=== PATIENT | female | born 1965 | race Caucasian/White ===

== ENCOUNTER 2019-01-29 15:16 | Outpatient (REF) | payer OTHER, SELFPAY ==
[2019-01-30 14:21] LABS: Chlamydia Result Negative (Negative); GC Result Negative (Negative)
== END 2019-01-29 15:36 ==
LOC: LBN 15:16
PROVIDERS: Visit Provider Nurse Practitioner Family
DX: Z11.3 Encounter for screening for infections with a predominantly sexual mode of transmission (principal)
CPT/HCPCS: 87491; 87591

== ENCOUNTER 2019-01-30 02:18 | Outpatient (CLI) | payer OTHER, SELFPAY ==
--- NOTE | 2019-01-30 08:09 | DI.US_ITS ---
EXAM: US PELVIS TRANSVAGINAL CLINICAL HISTORY: RLQ pain, R10.31 TECHNIQUE: Ultrasound performed using standard protocol. COMPARISON: No exams were available for comparison FINDINGS: Pelvic ultrasound was performed transabdominally and transvaginally. Please see the accompanying araceli a sheet for measurements of pelvic structures. Uterus is unremarkable in appearance. Endometrial st ripe is about 7 millimeters in thickness and appears homogeneous, please correlate with menopausal st atus. Left ovary contains 38 millimeter in diameter simple cyst. Right ovary contains a 12 millimeter in d iameter simple cyst or follicle. Otherwise ovaries are unremarkable in appearance. No free fluid id entified in the cul-de-sac. Limited scanning of the kidneys is unremarkable. IMPRESSION: Endometrial stripe homogeneous but 7 millimeters in thickness, please correlate regarding menopausal status. 38 millimeter in diameter simple cyst left ovary.
[2019-01-30 10:05] LABS: TSH (W/Ref FT4) 1.84 uIU/mL (0.36-3.74)
== END 2019-01-30 02:38 ==
PROVIDERS: Visit Provider Nurse Practitioner Family
DX: R10.31 Right lower quadrant pain (principal); N92.6 Irregular menstruation, unspecified; N83.292 Other ovarian cyst, left side; N83.291 Other ovarian cyst, right side
CPT/HCPCS: 36415; 76830; 76856; 84443

== ENCOUNTER 2019-02-02 12:47 | Outpatient (REF) | payer OTHER, SELFPAY ==
--- NOTE | 2019-02-02 11:30 | PAPFT_PTH ---
PATIENT: Lorena Gonzalez LOC: [facility] U#:[id number] AGE/SX: 53/F ROOM: RE02/02/[address]: RACHEAL Bruno : 1965 BED: DIS: 02/02/2019 SPEC #: [id number] RECD: 02/02/19 18:18 STATUS: SRAVANTHI REQ #: [id number] BRADEN: 02/02/19 11:[address]: Reshma Brothers DEPT: [facility] Cytology RECD BY: Cinthia Miranda ENTERED: 02/02/19 18:18 SP TYPE: PAPFT YOVANY DR: Rochelle Hernandez Tissues: 1 - CX/ENDOCX FOR PAP SMEARS Procedures: PAP THIN PREP/UVM Screening HPV DNA PROBE Comments: [id number]
== END 2019-02-02 13:07 ==
LOC: LBN 12:47
PROVIDERS: Visit Provider Nurse Practitioner Family
DX: Z12.4 Encounter for screening for malignant neoplasm of cervix (principal); Z11.51 Encounter for screening for human papillomavirus (HPV)
CPT/HCPCS: 88142; 87624

== ENCOUNTER 2019-03-05 07:48 | Outpatient (CLI) | payer OTHER, SELFPAY ==
[2019-03-05 08:13] LABS: Abs Immature Grans 0.01 k/cumm (0.0-0.09); Absolute Basophil Count 0.03 k/cumm (0.0-0.2); Absolute Eosinophil Count 0.35 k/cumm (0.0-0.7); Absolute Lymphocyte Count 1.81 k/cumm (1.2-3.4); Absolute Monocyte Count 0.63 k/cumm (0.11-0.7); Absolute Neutrophil Count 3.23 k/cumm (1.2-6.7); Basophils % 0.5; Eosinophils % 5.8; HCT 41.8 % (36.0-46.0); HGB 13.7 g/dL (12.0-15.5); Immature Grans % 0.2 %; Lymphocytes % 29.9; Mean Corp. HGB Concentration 32.8 g/dL (32.0-36.0); Mean Corpuscular Hemoglobin 33.4 pg (27.0-33.0); Mean Platelet Volume 9.6 fL (8.0-11.0); Monocytes % 10.4; Neutrophils % 53.2; Platelet Count 335 x1000/uL (130-400); RBC Distribution Width 12.1 % (11.7-14.6); White Blood Cell Count 6.06 k/cumm (4.4-10.8)
--- NOTE | 2019-03-05 08:17 | DI.MAMMO_ITS ---
EXAM: MG MAMMO SCREENING CLINICAL HISTORY: SCREENING, Z12.31. TECHNIQUE: Bilateral full field digital CC and MLO mammographic images were obtained with 3D tomosyn thesis and utilizing computer aided detection (CAD). COMPARISON: Available for comparison. FINDINGS: Masses/Architectural Distortion: None seen. Microcalcifications: No suspicious pleomorphic-type are seen. Skin Thickening/Nipple Retraction: None. IMPRESSION: 1. No significant interval change with no specific features of malignancy noted. 2. Unless there is more urgent need, screening mammography is recommended, as per [employer] guidelines. ACR BI-RAD Category- 1 Negative Breast Density - Category B - Scattered areas of fibroglandular density A negative radiographic report should not delay biopsy if a dominant or clinically suspicious mass is present. Up to ten percent of cancers are not identified on mammography. A negative report may reinforce clinical impression. Adenosis and dense breasts may obscure an underlying neoplasm. False positive reports average 6 to 10%. Patient will receive a letter notifying them of these results.
[2019-03-05 09:50] LABS: Anion Gap 12.5 mmol/L (3-11); BUN 14 mg/dL (7-18); CO2 23.5 mmol/L (21.0-32.0); CREATININE 0.83 mg/dL (0.55-1.02); Calcium 8.5 mg/dL (8.5-10.1); Calculated LDL 178 mg/dL; Chloride 107 mmol/L (98-107); Cholesterol 285 mg/dL (<200); Glucose 79 mg/dL (74-106); HDL Cholesterol 93 mg/dL (40-60); Potassium 4.4 mmol/L (3.5-5.1); Sodium 143 mmol/L (136-145); Triglyceride 72 mg/dL (<150)
== END 2019-03-05 08:08 ==
PROVIDERS: PCP Registered Nurse; Visit Provider Registered Nurse
DX: Z12.31 Encounter for screening mammogram for malignant neoplasm of breast (principal); I10 Essential (primary) hypertension; E78.5 Hyperlipidemia, unspecified
CPT/HCPCS: 36415; 77063; 77067; 80048; 80061; 85025

== ENCOUNTER 2019-03-09 19:48 | Emergency (ER) | payer OTHER, SELFPAY ==
[2019-03-09 19:54] VITALS: BP 131/83; PULSE 94; RESP 16; TEMP 37; O2SAT 100
--- NOTE | 2019-03-09 20:01 | ED.GENADUL_ITS ---
Discharge Plan Disposition Patient Disposition: HOME Condition: Good Discharge Details Chief Complaint: Orthopedic Clinical Impression: Left ankle sprain Primary Care Provider: Savana Mercado ED Provider: Alon Bernard Home Meds and New Rx's Prescriptions: No Action valacyclovir 500 mg tablet 1,000 mg PO DAILY RF: 0 lysine 1,000 mg tablet 1,000 mg PO DAILY RF: 0 Discharge Instructions Instructions: Ankle Sprain (ED) Additional Instructions: At this time there is no evidence of fracture on your x-rays. Please take Tylenol and Motrin and use ice to help with the swelling and pain. Please use a walking boot and crutches to keep any weight or stress off the foot. I would recommend being nonweightbearing to your left ankle for the next 3 to 4 days, after this gradually transition to using the walking boot. If you have no improvement of your symptoms over the next 2 to 3 weeks you may require repeat imaging. If you notice any worsening of your symptoms, or any new symptoms such as vomiting, diarrhea, fever, chills, shortness of breath, chest pain, numbness, weakness, or fainting , please return immediately to the emergency department for reevaluation. Please follow up with your primary care provider as soon as possible for reassessment and reevaluation. As always, it was a pleasure participating in your medical care today. Referrals: Savana Mercado [Primary Care Provider] - Medical Decision Making This is a 53-year-old female who presents for pain in the left lateral ankle. It roughly 20 to 30 minutes prior to arrival patient stepped into a pothole and inverted her left ankle. She has notable swelling over the left lateral malleolus. No evidence of gross deformity. Pain does limit ambulation. Strength and sensation appear to be intact otherwise. Will get x-ray of the left ankle the left knee secondary to pain with valgus stressing. Will give Tylenol here as she has just taken Motrin here in the ED from her pocketbook. 8:46 PM X-ray results have returned, no evidence of acute process or fracture. We will give the patient crutches, walking boot, recommend Tylenol Motrin and ice. Discussed red flags which to return. I have extensively reviewed the treatment plan and discharge instructions with the patient and their family. I have addressed all patient concerns at this time. The patient and family was made aware of what symptoms to monitor for that would warrant a return to the emergency department. Discussed the plan with the patient and family, they demonstrate verbal understanding and agreement with our assessment and plan at this time. FINDINGS: Bones/joints: There is no evidence of acute fracture.There is no evidence of malalignment or dislocation. Soft tissues: Normal. IMPRESSION: There is no evidence of acute fracture.There is no evidence of malalignment or dislocation. Thank you for allowing us to participate in the care of your patient. Dictated and Authenticated by: Rach Gomez MD 03/09/2019 8:28 PM Eastern Time ([place] & [place]) FINDINGS: Bones/joints: There is no evidence of acute fracture.There is no evidence of malalignment or dislocation. Soft tissues: Lateral malleolar soft tissue swelling. IMPRESSION: 1. Lateral malleolar soft tissue swelling. 2. There is no evidence of acute fracture.There is no evidence of malalignment or dislocation. Thank you for allowing us to participate in the care of your patient. Dictated and Authenticated by: Rach Gomez MD 03/09/2019 8:29 PM Eastern Time ([place] & [place]) HPI General Date/Time Provider Initiated Documentation: 03/09/19 19:49 . HPI Narrative: This is a 53-year-old female who presents today for left ankle pain. Roughly 20-30 minutes prior to arrival the patient was walking stepped in a pothole and inverted her left ankle. Because of the mild twisting of the knee. Pain is in the lateral ankle. She denies numbness or tingling. Pain is made worse with movement or ambulation. Patient denies any other complaints at this time. She has not taken any NSAIDs. Related Data Home Medications Medication Instructions Recorded Confirmed lysine 1,000 mg tablet 1,000 mg PO DAILY 01/29/19 03/09/19 valacyclovir 500 mg tablet 1,000 mg PO DAILY tab 01/29/19 03/09/19 Allergies Allergy/AdvReac Type Severity Reaction Status Date / Time erythromycin base AdvReac Intermediate Verified 03/09/19 19:57 [From Erythrocin] General Stated Complaint: Orthopedic DION: 4 Review of Systems All systems reviewed & are unremarkable except as noted in HPI and below [facility]LY [facility] Medical History (Updated 03/09/19 @ 19:59 by Sydni Savage) Migraine (Chronic) Trigeminal neuralgia (Acute) Social History Smoking/Tobacco Use Status: Never Alcohol Intake: never Drug use: Never Substance use type: does not use Details: 1-2 drinks five days a week Additional Social history: pt is here with family; interacts appropriately Female Reproductive History Menstrual control method: none History History 3 Para 3 Hx # Term Pregnancies Multiple births Hx # Pregnancies Ectopic pregnancies AB induced Hx Number of Living Children AB spontaneous Exam Narrative Exam Narrative: 1.Const: Well-nourished, Well-developed, appearing stated age 2.Eyes: PERRL, no conjunctival injection, and symmetrical lids. 3.ENT: Atraumatic external nose and ears. Moist MM. Neck: Symmetric, trachea midline, No thyromegaly. 4.CVS: +S1/S2, No murmurs or gallops. Peripheral pulses 2+ and equal in all extremities. Brisk capillary refill in all extremities. 5.RESP: Unlabored respiratory effort. Clear to auscultation bilaterally. No wheezes rales or rhonchi 6.GI: Soft, Nontender/Nondistended, No hepatosplenomegaly. No guarding or rebound. 7.MSK: Normocephalic, Extremities w/o deformity however there is notable swelling over the lateral malleolus of the left ankle no cyanosis or clubbing, Left knee: The knee is stable to varus, valgus, and anterior drawer stress. However the patient does have mild pain with valgus stressing of the left knee. No deformity. Patellar grind test is negative. Dwight test is negative for pain. No edema or warmth to the joint. No ttp to the patella, tibial plateau, or fibular head. Left ankle: Patient demonstrates normal strength for plantarflexion, dorsiflexion, and medial and lateral movement. Strength is somewhat limited for lateral movement secondary to pain. Notable swelling over the lateral malleolus with appropriate tenderness over this area. No evidence of gross deformity though. No significant tenderness over the arch of the foot, or toes. She is able to flex and extend her toes well without difficulty. Brisk capillary refill is present, dorsalis pedis and posterior tibial pulse +2 bilaterally. Normal sensation throughout. No deformity for the tib or fib. No significant tenderness on palpation of the tibia or fibula except for the distal aspect of the lateral malleolus. 8.Skin: Warm, Dry. No rashes or lesions. 9.Neuro: rolling machine tender II-XII grossly intact. Sensation grossly intact, no focal neurologic deficits. 10.Psych: (AAO) x3. Appropriate mood and affect Course Vital Signs Vital signs: Vital Signs Temperature 37.0 C 03/09/19 19:54 Pulse 94 H 03/09/19 19:54 Respiratory Rate 16 03/09/19 19:54 Blood Pressure 131/83 03/09/19 19:54 Pulse Oximetry 100 03/09/19 19:54 Temperature 37.0 C 03/09/19 19:54 Temperature Source Skin 03/09/19 19:54 Pulse 94 H 03/09/19 19:54 Respiratory Rate 16 03/09/19 19:54 Blood Pressure 131/83 03/09/19 19:54 Pulse Oximetry 100 03/09/19 19:54 Pain Level 9 03/09/19 19:54
[2019-03-09] MEDS: Acetaminophen 500 MG TAB 1000 MG PO (20:05)
--- NOTE | 2019-03-09 20:11 | DI.RAD_ITS ---
EXAM: XR KNEE LT 3V AP,LAT,BERTO INDICATION: fall, medial knee pain. COMPARISON: No exams were available for comparison TECHNIQUE: 2D digital imaging was performed. FINDINGS: No fracture or joint effusion is seen. There are minimal degenerative changes. IMPRESSION: No acute abnormality.
--- NOTE | 2019-03-09 20:15 | DI.RAD_ITS ---
EXAM: XR ANKLE LT COMPLETE INDICATION: fall, lateral ankle pain. COMPARISON: No exams were available for comparison TECHNIQUE: 2D digital imaging was performed. FINDINGS: There is soft tissue swelling around the lateral malleolus. No fracture or ankle mortise widening. No talar dome defect is seen. IMPRESSION: Soft tissue swelling.
--- NOTE | 2019-03-09 20:28 | DI.VRAD_ITS ---
PROCEDURE INFORMATION: Exam: XR Left Knee Exam date and time: 03/09/2019 7:57 PM Age: 53 years old Clinical indication: Pain; Knee; Left; Patient HX: Fall TECHNIQUE: Imaging protocol: XR Left knee. Views: 3 views. COMPARISON: No relevant prior studies available. FINDINGS: Bones/joints: There is no evidence of acute fracture.There is no evidence of malalignment or dislocation. Soft tissues: Normal. IMPRESSION: There is no evidence of acute fracture.There is no evidence of malalignment or dislocation. Dictated and Authenticated by: Rach Gomez MD. Ordering:ELLY Chi MD
--- NOTE | 2019-03-09 20:29 | DI.VRAD_ITS ---
PROCEDURE INFORMATION: Exam: XR Left Ankle Exam date and time: 03/09/2019 8:24 PM Age: 53 years old Clinical indication: Pain; Ankle; Left; Patient HX: Fall TECHNIQUE: Imaging protocol: XR Left ankle. Views: 3 or more views. COMPARISON: No relevant prior studies available. FINDINGS: Bones/joints: There is no evidence of acute fracture.There is no evidence of malalignment or dislocation. Soft tissues: Lateral malleolar soft tissue swelling. IMPRESSION: 1. Lateral malleolar soft tissue swelling. 2. There is no evidence of acute fracture.There is no evidence of malalignment or dislocation. Dictated and Authenticated by: Rach Gomez MD. Ordering:ELLY Chi MD
== END 2019-03-09 21:05 | disposition home or self-care (01) ==
PROVIDERS: Emergency Provider Student in an Organized Health Care Education/Training Program; PCP Registered Nurse
DX: S93.402A Sprain of unspecified ligament of left ankle, initial encounter (principal); M25.562 Pain in left knee; W17.2XXA Fall into hole, initial encounter; X50.9XXA Other and unspecified overexertion or strenuous movements or postures, initial encounter
CPT/HCPCS: 29515; 73562; 99285; 73610; 99284; E0114; L4361

== ENCOUNTER 2019-04-07 09:58 | Outpatient (CLI) | payer OTHER, SELFPAY ==
--- NOTE | 2019-04-07 09:45 | DI.RAD_ITS ---
EXAM: XR ANKLE LT COMPLETE CLINICAL HISTORY: f/u TECHNIQUE: COMPARISON: XR ANKLE LT COMPLETE from 03/09/2019 FINDINGS: Three views were obtained. The ankle mortise is well maintained. No bony or soft tissue abnormality seen. IMPRESSION:
== END 2019-04-07 10:18 ==
PROVIDERS: PCP Registered Nurse; Visit Provider Orthopaedic Surgery
DX: S93.402D Sprain of unspecified ligament of left ankle, subsequent encounter (principal)
CPT/HCPCS: 73610

== ENCOUNTER 2019-06-01 11:05 | Observation (INO) | payer OTHER, SELFPAY ==
[2019-06-01] VITALS (90 sets, daily range): BP systolic 113–143; BP diastolic 68–91; PULSE 56–92; RESP 12–28; TEMP 36.5–37.3; O2SAT 94–100
[2019-06-01 12:03] LABS: Absolute Basophil Count 0.03 k/cumm (0.0-0.2); Absolute Eosinophil Count 0.13 k/cumm (0.0-0.7); Absolute Lymphocyte Count 1.24 k/cumm (1.2-3.4); Absolute Monocyte Count 0.39 k/cumm (0.11-0.7); Absolute Neutrophil Count 3.23 k/cumm (1.2-6.7); Basophils % 0.6; Eosinophils % 2.6; Lymphocytes % 24.7; Mean Corp. HGB Concentration 33.3 g/dL (32.0-36.0); Mean Corpuscular Hemoglobin 32.8 pg (27.0-33.0); Mean Corpuscular Volume 98.5 fL (80-95); Mean Platelet Volume 9.9 fL (8.0-11.0); Monocytes % 7.8; Neutrophils % 64.3; Platelet Count 337 x1000/uL (130-400); RBC 3.96 m/cumm (4.00-5.20); RBC Distribution Width 12.6 % (11.7-14.6); White Blood Cell Count 5.02 k/cumm (4.4-10.8)
--- NOTE | 2019-06-01 12:15 | DI.RAD_ITS ---
EXAM: XR PORTABLE CHEST AP CLINICAL HISTORY: chest pain TECHNIQUE: 2D digital imaging was performed. COMPARISON: No exams were available for comparison FINDINGS: LUNGS: Clear. No pleural abnormality seen. HEART: Normal. MEDIASTINUM: Normal. OTHER FINDINGS: None. OTHER FINDINGS: EKG leads overlie the chest. IMPRESSION: No acute pulmonary findings. DATA REPOSITORY: RADIATION DOSE DELIVERED:
[2019-06-01 12:23] LABS: ALT 24 U/L (14-59); AST 35 U/L (15-37); Albumin 3.7 g/dL (3.4-5.0); Alkaline Phosphatase 55 U/L (46-116); Anion Gap 8.5 mmol/L (3-11); BUN 13 mg/dL (7-18); Bilirubin, Total 0.5 mg/dL (0.2-1.0); CO2 24.5 mmol/L (21.0-32.0); CREATININE 0.76 mg/dL (0.55-1.02); Chloride 107 mmol/L (98-107); Glucose 89 mg/dL (74-106); Magnesium 2.1 mg/dL (1.8-2.4); Sodium 140 mmol/L (136-145); Total Protein 7.1 g/dL (6.4-8.2)
[2019-06-01 12:24] LABS: Troponin I < 0.05 ng/Ml (<0.06)
[2019-06-01] MEDS: Aspirin 81 MG CHEW 324 MG CH (12:25)
--- NOTE | 2019-06-01 12:25 | ED.GENADUL_ITS ---
Discharge Plan Discharge Details Chief Complaint: Chest Pain Primary Care Provider: Savana Mercado ED Provider: Valerie Royal Home Meds and New Rx's Prescriptions: No Action valacyclovir 500 mg tablet 1,000 mg PO DAILY RF: 0 lysine 1,000 mg tablet 1,000 mg PO DAILY RF: 0 ibuprofen 800 mg tablet 800 mg PO Q8H RF: 0 Medical Decision Making Lorena Gonzalez is a 53-year-old woman with a history of hypertension, migraine headaches, depression who presented to the emergency department with exertional chest pain that began 3 days ago, in the setting of new intermittent chest pressure since mid April and respiratory infection 1 to 2 weeks ago now improving. On exam patient is well and nontoxic-appearing. Benign cardiopulmonary exam. Concern for ACS versus musculoskeletal pain versus other. Low risk for pulmonary embolism. Exam/history is not consistent with acute aortic process, sepsis. Plan for EKG, chest x-ray, screening labs, 324 mg aspirin, telemetry, IV. Will monitor and reassess. Initial troponin negative, will repeat. Patient reports she has no chest pain on reassessment. Repeat troponin negative, patient remains pain-free. Patient does not low risk for discharge at this time. Concern for unstable angina. Plan for admission, patient presentation and results discussed with Dr. Nation. Clinical impression: Chest pain Disposition: [facility] inpatient Medical Records Medical records reviewed: Yes I reviewed the patient's medical records. Imaging Data Radiologic Study: Attestation: I personally reviewed and interpreted this imaging study as follows: Radiologist's impression: EXAM: XR PORTABLE CHEST AP CLINICAL HISTORY: chest pain TECHNIQUE: 2D digital imaging was performed. COMPARISON: No exams were available for comparison FINDINGS: LUNGS: Clear. No pleural abnormality seen. HEART: Normal. MEDIASTINUM: Normal. OTHER FINDINGS: None. OTHER FINDINGS: EKG leads overlie the chest. IMPRESSION: No acute pulmonary findings. Lab Data Lab results reviewed: Yes I reviewed the patient's lab results. Labs: Laboratory Tests Range/Units 06/01/19 06/01/19 06/01/19 11:50 11:50 11:50 WBC (4.4-10.8) k/cumm 5.02 RBC (4.00-5.20) m/cumm 3.96 L Hgb (12.0-15.5) g/dL 13.0 Hct (36.0-46.0) % 39.0 MCV (80-95) fL 98.5 H MCH (27.0-33.0) pg 32.8 MCHC (32.0-36.0) g/dL 33.3 RDW (11.7-14.6) % 12.6 Plt Count (130-400) x1000/uL 337 MPV (8.0-11.0) fL 9.9 Immature Gran % % 0.0 Neutrophils % 64.3 Lymphocytes % 24.7 Monocytes % 7.8 Eosinophils % 2.6 Basophils % 0.6 Absolute Neutrophils (1.2-6.7) k/cumm 3.23 Absolute Lymphocytes (1.2-3.4) k/cumm 1.24 Absolute Monocytes (0.11-0.7) k/cumm 0.39 Absolute Eosinophils (0.0-0.7) k/cumm 0.13 Absolute Basophils (0.0-0.2) k/cumm 0.03 D-Dimer (<500) ng/mlFEU 220 Sodium (136-145) mmol/L 140 Potassium (3.5-5.1) mmol/L 5.0 Chloride (98-107) mmol/L 107 Carbon Dioxide (21.0-32.0) mmol/L 24.5 Anion Gap (3-11) mmol/L 8.5 BUN (7-18) mg/dL 13 Creatinine (0.55-1.02) mg/dL 0.76 Estimated GFR/1.73 m2 (mL/min/1.73m2) >= 60.00 Glucose (74-106) mg/dL 89 Calcium (8.5-10.1) mg/dL 9.0 Magnesium (1.8-2.4) mg/dL 2.1 Total Bilirubin (0.2-1.0) mg/dL 0.5 AST (15-37) U/L 35 ALT (14-59) U/L 24 Alkaline Phosphatase (46-116) U/L 55 Troponin I (<0.06) ng/Ml < 0.05 Total Protein (6.4-8.2) g/dL 7.1 Albumin (3.4-5.0) g/dL 3.7 Range/Units 06/01/19 14:45 WBC (4.4-10.8) k/cumm RBC (4.00-5.20) m/cumm Hgb (12.0-15.5) g/dL Hct (36.0-46.0) % MCV (80-95) fL MCH (27.0-33.0) pg MCHC (32.0-36.0) g/dL RDW (11.7-14.6) % Plt Count (130-400) x1000/uL MPV (8.0-11.0) fL Immature Gran % % Neutrophils % Lymphocytes % Monocytes % Eosinophils % Basophils % Absolute Neutrophils (1.2-6.7) k/cumm Absolute Lymphocytes (1.2-3.4) k/cumm Absolute Monocytes (0.11-0.7) k/cumm Absolute Eosinophils (0.0-0.7) k/cumm Absolute Basophils (0.0-0.2) k/cumm D-Dimer (<500) ng/mlFEU Sodium (136-145) mmol/L Potassium (3.5-5.1) mmol/L Chloride (98-107) mmol/L Carbon Dioxide (21.0-32.0) mmol/L Anion Gap (3-11) mmol/L BUN (7-18) mg/dL Creatinine (0.55-1.02) mg/dL Estimated GFR/1.73 m2 (mL/min/1.73m2) Glucose (74-106) mg/dL Calcium (8.5-10.1) mg/dL Magnesium (1.8-2.4) mg/dL Total Bilirubin (0.2-1.0) mg/dL AST (15-37) U/L ALT (14-59) U/L Alkaline Phosphatase (46-116) U/L Troponin I (<0.06) ng/Ml < 0.05 Total Protein (6.4-8.2) g/dL Albumin (3.4-5.0) g/dL ECG Data Attestation: I personally reviewed and interpreted this ECG (s) as follows: Interpretation: EKG shows sinus rhythm at 89, normal axis, ST depressions inferiorly and V3 through V6, no STEMI, nondiagnostic EKG (prior EKG obtained from outpatient clinic 04/09/[address] depressions) Repeat EKG 15: 02 shows sinus rhythm at 66, normal axis, ST depressions improved from EKG earlier today, no STEMI, nondiagnostic EKG HPI General Mode of arrival: ambulatory . Date/Time Provider Initiated Documentation: 06/01/19 11:05 . Limitations to Documentation: no limitations . Information obtained by: patient, RN notes reviewed and old records reviewed . HPI Narrative: Lorena Gonzalez is a 53 y/o woman with a history of hypertension, migraine headaches, depression presenting to the emergency department with chest pain. Patient reports that she has had intermittent central chest pressure since April 27. Patient reports that she had not had this prior to April 2019, that pressure sensation was nonexertional, did not seem to have modifiers, and has not been present for the past 4 to 5 days. Patient reports that she developed low-grade fevers and dry cough approximately 1.5 weeks ago. Patient reports that cough seems improved over the past few days. Patient reports that she came to the emergency department for new chest pain that developed 3 days ago. Patient reports that 3 days ago she noticed sharp/aching pain in her left anterior chest and in her left armpit. Patient reports that pain was intermittent, but worsened with climbing a flight of stairs and also at 1 point when she was having an emotional conversation at home. Patient reports that pain has remained intermittent since onset 3 days ago, and continues to be worse with exertion. She denies having similar symptoms in the past. She denies any other pain, fevers, shortness of breath, nausea/vomiting/diarrhea, numbness, weakness. Patient reports that she has been eating and drinking as usual. Has been going about her daily activities as usual. No recent immobilization or travel. Related Data Home Medications Medication Instructions Recorded Confirmed lysine 1,000 mg tablet 1,000 mg PO DAILY 01/29/19 06/01/19 valacyclovir 500 mg tablet 1,000 mg PO DAILY tab 01/29/19 06/01/19 ibuprofen 800 mg tablet 800 mg PO Q8H 03/10/19 06/01/19 Allergies Allergy/AdvReac Type Severity Reaction Status Date / Time sumatriptan Allergy Verified 06/01/19 11:24 erythromycin base AdvReac Intermediate Projectile Verified 06/01/19 11:24 [From Erythrocin] vomiting General Stated Complaint: Chest Pain DION: 2 Review of Systems Narrative: Constitutional: denies fevers Eyes: denies eye pain ENT: denies ear pain, dental pain, sore throat Cardiovascular: denies chest pain, edema, reports chest pain as per HPI Respiratory: denies SOB, cough GI: denies abdominal pain, vomiting, diarrhea : denies flank pain MSK: denies back pain, neck pain, arthralgias, myalgias Skin: denies rash Neuro: denies headaches, numbness, weakness PFSH Medical History Depression (Chronic) Herpes labialis (Acute) Hypertension (Chronic) Migraine (Chronic) Shingles (Acute) Trigeminal neuralgia (Acute) Social History Smoking/Tobacco Use Status: Never Alcohol Intake: never Drug use: Never Substance use type: does not use Details: 1-2 drinks five days a week Do you feel safe at home: Yes Do you feel safe in your relationship?: Yes Additional Social history: pt is here with family; interacts appropriately Female Reproductive History Menstrual control method: none History History 3 Para 3 Hx # Term Pregnancies Multiple births Hx # Pregnancies Ectopic pregnancies AB induced Hx Number of Living Children AB spontaneous Exam Narrative Exam Narrative: Constitutional: well and [id number], pleasant, conversing normally HENT: head atraumatic/normocephalic/normal inspection, mucous membranes moist Eyes: conjunctiva normal, sclera normal, pupils 3mm b/l Neck: no stridor, normal ROM, trachea midline Chest: normal inspection, nontender to palpation Resp: normal work of breathing, LCTAB Cardio: normal rate, normal rhythm, no murmur appreciated Back: normal inspection, no rash Skin: warm, dry, normal color, no rash Neuro: alert, not altered, grossly non-focal, normal tone Ext: no edema, no posterior calf tenderness to palpation Psych: normal mood, normal affect, normal behavior Course Vital Signs Vital signs: Vital Signs Temperature 37.3 C 06/01/19 11:19 Pulse 92 H 06/01/19 11:19 Blood Pressure 131/86 06/01/19 11:19 Pulse Oximetry 100 06/01/19 11:19 Temperature 37.3 C 06/01/19 11:19 Temperature Source Temporal Artery Scan 06/01/19 11:19 Pulse 92 H 06/01/19 11:19 Respiratory Effort Non-Labored 06/01/19 11:22 Blood Pressure 131/86 06/01/19 11:19 Blood Pressure Position Sitting 06/01/19 11:19 Pulse Oximetry 100 06/01/19 11:19 Oxygen Delivery Method Room Air 06/01/19 11:19 Oxygen Flow Rate 0 06/01/19 11:19 Pain Level 1 06/01/19 11:19 Comment 06/01/19 11:19 Lab/Test Results Lab/Test Results: Laboratory Tests Range/Units 06/01/19 06/01/19 11:50 11:50 WBC (4.4-10.8) k/cumm 5.02 RBC (4.00-5.20) m/cumm 3.96 L Hgb (12.0-15.5) g/dL 13.0 Hct (36.0-46.0) % 39.0 MCV (80-95) fL 98.5 H MCH (27.0-33.0) pg 32.8 MCHC (32.0-36.0) g/dL 33.3 RDW (11.7-14.6) % 12.6 Plt Count (130-400) x1000/uL 337 MPV (8.0-11.0) fL 9.9 Immature Gran % % 0.0 Neutrophils % 64.3 Lymphocytes % 24.7 Monocytes % 7.8 Eosinophils % 2.6 Basophils % 0.6 Absolute Neutrophils (1.2-6.7) k/cumm 3.23 Absolute Lymphocytes (1.2-3.4) k/cumm 1.24 Absolute Monocytes (0.11-0.7) k/cumm 0.39 Absolute Eosinophils (0.0-0.7) k/cumm 0.13 Absolute Basophils (0.0-0.2) k/cumm 0.03 Sodium (136-145) mmol/L 140 Potassium (3.5-5.1) mmol/L 5.0 Chloride (98-107) mmol/L 107 Carbon Dioxide (21.0-32.0) mmol/L 24.5 Anion Gap (3-11) mmol/L 8.5 BUN (7-18) mg/dL 13 Creatinine (0.55-1.02) mg/dL 0.76 Estimated GFR/1.73 m2 (mL/min/1.73m2) >= 60.00 Glucose (74-106) mg/dL 89 Calcium (8.5-10.1) mg/dL 9.0 Magnesium (1.8-2.4) mg/dL 2.1 Total Bilirubin (0.2-1.0) mg/dL 0.5 AST (15-37) U/L 35 ALT (14-59) U/L 24 Alkaline Phosphatase (46-116) U/L 55 Troponin I (<0.06) ng/Ml < 0.05 Total Protein (6.4-8.2) g/dL 7.1 Albumin (3.4-5.0) g/dL 3.7
[2019-06-01 13:08] LABS: D-Dimer 220 ng/mlFEU (<500)
[2019-06-01 15:29] LABS: Troponin I < 0.05 ng/Ml (<0.06)
--- NOTE | 2019-06-01 20:07 | HPE_ITS ---
Date of service: 06/01/19 Time of Service: 20:07 Assessment and Plan Assessment and plan (1) Chest pain: Status: Acute Assessment and plan: CP. With consistent story and apparently correlative EKG changes I think there is a fair lilklihood here of [place] ([place]). Will heparinize, complete troponin series and plan on stress test in AM. History of Present Illness History of Present Illness Chief Complaint: CP Narrative: 53 female with HTN, reports four to five days of CP (left sided with radiation to shoulder, achy or sharp) occurring with either physicall exertion (climbing stairs) or emotional stress (watching children argue). In ER fiundings of note for sagging of ST seg ments on initial EKG (denied CP to ER staff at time but states to me that in fact she had slight pain at time), resolution of changes on EKG 2, troponin negative x 2, normal CXR and d-Dimer. Given ASA and admitted for further management. Review of Systems All systems reviewed & are unremarkable except as noted in HPI and below PFSH Medical History Depression (Chronic) Herpes labialis (Acute) Hypertension (Chronic) Migraine (Chronic) Shingles (Acute) Trigeminal neuralgia (Acute) Family History Father Hepatitis Mother Depression Heart disease Social History Smoking/Tobacco Use Status: Never Alcohol Intake: never Drug use: Never Substance use type: does not use Details: 1-2 drinks five days a week Do you feel safe at home: Yes Do you feel safe in your relationship?: Yes Additional Social history: pt is here with family; interacts appropriately Female Reproductive History Menstrual control method: none History History 3 Para 3 Hx # Term Pregnancies Multiple births Hx # Pregnancies Ectopic pregnancies AB induced Hx Number of Living Children AB spontaneous Meds Home Medications and Allergies Home Medications Medication Instructions Recorded Confirmed Type lysine 1,000 mg tablet 1,000 mg PO DAILY 01/29/19 06/01/19 History valacyclovir 500 mg tablet 1,000 mg PO DAILY tab 01/29/19 06/01/19 History ibuprofen 800 mg tablet 800 mg PO Q8H 03/10/19 06/01/19 History Allergies Allergy/AdvReac Type Severity Reaction Status Date / Time sumatriptan Allergy Verified 06/01/19 11:24 erythromycin base AdvReac Intermediate Projectile Verified 06/01/19 11:24 [From Erythrocin] vomiting Exam Narrative Exam Narrative: 120/78, 60, 18, 37.0, 96% RA. HEENT unremarkable; neck supple w/o JVD; lungs cleasr; heart RRR w/o MRG, no chest tenderness; abdomen soft and NT; extremities w/o edema, pulse 2+/= Results Labs Result diagrams: 06/01/19 11:50 06/01/19 11:50 Labs: Laboratory Results - last 24 hr 06/01/19 06/01/19 06/01/19 11:50 11:50 11:50 WBC 5.02 RBC 3.96 L Hgb 13.0 Hct 39.0 MCV 98.5 H MCH 32.8 MCHC 33.3 RDW 12.6 Plt Count 337 MPV 9.9 Immature Gran % 0.0 Neutrophils % 64.3 Lymphocytes % 24.7 Monocytes % 7.8 Eosinophils % 2.6 Basophils % 0.6 Absolute Neutrophils 3.23 Absolute Lymphocytes 1.24 Absolute Monocytes 0.39 Absolute Eosinophils 0.13 Absolute Basophils 0.03 D-Dimer 220 Sodium 140 Potassium 5.0 Chloride 107 Carbon Dioxide 24.5 Anion Gap 8.5 BUN 13 Creatinine 0.76 Estimated GFR/1.73 m2 >= 60.00 Glucose 89 Calcium 9.0 Magnesium 2.1 Total Bilirubin 0.5 AST 35 ALT 24 Alkaline Phosphatase 55 Troponin I < 0.05 Total Protein 7.1 Albumin 3.7 06/01/19 14:45 WBC RBC Hgb Hct MCV MCH MCHC RDW Plt Count MPV Immature Gran % Neutrophils % Lymphocytes % Monocytes % Eosinophils % Basophils % Absolute Neutrophils Absolute Lymphocytes Absolute Monocytes Absolute Eosinophils Absolute Basophils D-Dimer Sodium Potassium Chloride Carbon Dioxide Anion Gap BUN Creatinine Estimated GFR/1.73 m2 Glucose Calcium Magnesium Total Bilirubin AST ALT Alkaline Phosphatase Troponin I < 0.05 Total Protein Albumin Last Vital Signs Temp 37.0 C 06/01/19 13:44 Pulse 57 L 06/01/19 19:00 Resp 18 06/01/19 19:20 BP 120/78 06/01/19 19:00 Pulse Ox 96 06/01/19 19:20 COVID-19 Screening Traveled to [place] from one of the affected countries or regions?: NO Recent travel in the [facility] within the last 8 weeks?: No Exposure or possible exposure to illness during travel?: No Had IN PERSON contact w/suspected or confirmed C-19 person: No Have you had the following symptoms in the past few days?: Yes Symptoms noted since travel?: Fever Medical treatment received for symptoms/illness related to travel?: COUGH
[2019-06-01 21:44] LABS: PTT Activated 27.7 sec (21.0-31.4)
[2019-06-01 21:51] LABS: Troponin I < 0.05 ng/Ml (<0.06)
[2019-06-01 23:53] LABS: Troponin I < 0.05 ng/Ml (<0.06)
[2019-06-02] VITALS (94 sets, daily range): BP systolic 108–142; BP diastolic 67–88; PULSE 52–120; RESP 11–32; TEMP 36.1–36.6; O2SAT 96–98
[2019-06-02] MEDS: Acetaminophen 325 MG TAB 650 MG PO (07:35)
[2019-06-02] MEDS: Normal Saline Flush 10 ML SYR (07:36)
[2019-06-02 08:13] LABS: PTT Activated 95.7 sec (21.0-31.4)
--- NOTE | 2019-06-02 08:53 | NUR.NOTE ---
Placed ice pack behind patient's neck for c/o TOVAR. Nursing Note:
--- NOTE | 2019-06-02 09:06 | PDOC.CMIN ---
- If Service Date Differs Date of service: 06/02/19 Time of Service: 09:06 Care Management Initial Assess REASON FOR HOSPITALIZATION:: Chest pain. PAST MEDICAL HISTORY/PAST SURGICAL HISTORY:: Medical History: Depression, Herpes labialis, Hypertension, Migraine,. Shingles, and Trigeminal neuralgia. No surgical history of record. PREVIOUS FUNCTIONAL STATUS/SOCIAL/FAMILY SUPPORTS:: Lorena resides in [facility] with her , Montez, their 19 and 10 year old daughters, and their two dogs. The couple also has an adult son who resides in [place], [place]. Lorena states they previously lived in [place], [place], but moved to [place] in the fall of 2018. 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 She also spends time volunteering at [employer] and is involved in [employer]. She also enjoys sewing, [employer] Infrastructurestering furniture, and gardening. Lorena drives and is independent at baseline. CURRENT FUNCTIONAL STATUS:: Lorena is sitting up in bed when CM comes to meet with her. She is pleasant and easily engages in conversation. She shares her concerns over her ability to isolate and keep her distance from family members once she returns home, as her eldest daughter has a diagnosis of Asperger's and may struggle with her inability to be physically close to Lorena. She also expresses concerns over experiencing chest pain and asks if the results of her scan are back yet. CM advises the hospitalist will provide her with the results when he meets with her. CM will continue to follow. ADVANCE DIRECTIVES:: None on file. Has patient been provided with information about the portal?: Yes Did the patient sign up for the portal?: Yes (Previously enrolled) CODE STATUS:: Full Code INSURANCE COVERAGE / FINANCIAL ISSUES:: [employer] CURRENT HOME/COMMUNITY SERVICES/EQUIPMENT:: Lorena denies current home/community services. She also denies owning medical equipment, but states she sprained her left ankle a few weeks ago and has a flexible boot for her left foot. PRIMARY CARE PHYSICIAN:: Savana Mercaod APRN ([facility]). POTENTIAL DISCHARGE NEEDS:: Follow-up appointment with PCP and art education professor. PATIENT/FAMILY EDUCATION NEEDS:: Discharge instructions, limitations, follow-up plan of care, including Ask Me Three and self-management ANTICIPATED BARRIERS TO DISCHARGE:: No anticipated barriers at this time. TRANSPORTATION:: Lorena reports she drove herself to the hospital and her car is still in the hospital parking lot. She will drive herself home upon discharge. PLAN:: Anticipate Lorena will be discharged home with no new services when medically cleared by provider. She will follow-up with her PCP and plan of care as directed. Lorena will drive herself home, as her vehicle is parked in the hospital parking lot. CM will continue to follow patient and support discharge planning considerations.
[2019-06-02] MEDS: valACYclovir 500 MG TAB 1000 MG PO (09:27)
[2019-06-02] MEDS: Ibuprofen 800 MG TAB PO (11:25)
[2019-06-02] MEDS: Regadenoson 0.4 MG/5 ML SYR IVP (13:38)
--- NOTE | 2019-06-02 14:33 | DI.NM_ITS ---
APPROVED REPORT Exam: Pharmacologic Patient Location: In-Patient Room/Bed: Stress Nurse: Claudia Gutierrez RN BMI: 29.61 Baseline Rhythm: Sinus Rhythm with abnormal R wave progression, early repolarization Indications: Chest pain with exertion and emotional stress. Medical History Medical History: Angina, HTN Cardiac Medications: None, Allergies: Sumatriptan. Erythromycin. Cardiac Risk Factors: HTN Pretest Chest Pain Characteristics: Exertional Chest pain, Non-exertional Chest pain Exercise History: Indeterminate Physical Disabilities: Migraine headache. COVID-19 test results still pending. Lung Sounds: Clear to auscultation Heart Sounds: Regular Stress Test Details Test: Pharmacologic stress testing performed using 0.4 mg of regadenoson per 5 mL given IV over 10 s econds. Reversal agent Aminophyline 50 mg, given intravenously for chest paindyspneaheadachenausea. Nuclear Acquisition: Rest Tc-99m/Stress Tc-99m 1 day Rest Isotope: Tc-99m Sestamibi. Dose: 9.1 Date: 06/02/2019 Injection Time: 1150 Stress Isotope: Tc-99m Sestamibi. Dose: 31.6 Date: 06/02/2019 Injection Time: 1340 HR Resting HR Supine: 81 bpm Max Heart Rate (APMHR): 168 bpm Target HR (85% APMHR): 142 bpm Max HR Achieved: 143 bpm % of APMHR: 85 Recovery HR: 98 bpm HR response to stress: Abnormal HR response to stress Comment: Accelerated HR response to Regadenoson injection. BP Resting BP Supine: 130/64 mmHg Max BP: 140/72 mmHg Recovery BP: 136/70 mmHg BP response to stress: Normal blood pressure response to stress. ECG Resting ECG: Sinus Rhythm with abnormal R wave progression, early repolarization Ectopy: rare PVCs Stress ECG: Sinus Tachycardia ST Change: Normal Arrhythmia: None Recovery ECG: Sinus tachycardia Recovery ST Change: Normal Medications Administered Aminophyline (50 mg at 1400) HR up to 143 bpm 30 seconds post Regadenoson injection. HR slow to come down to below 100 bpm. Pt bec bandar severely symptomatic post Regadenoson injection with reports of 7 out of 10 chest pain/pressure, heart racing, headache and nausea. BP's remained stable (130 to 140's systolic) throughout testing ti me. Aminophlline 50mg IVP given over 30 seconds to aid in reversing her symptoms. Pt's HR did come do wn to 98 bpm and pt reported feeling better after recieving Aminophllline injection. Dr Rodriges update d on these events. Clinical Stress Symptoms: Chest pain, Dyspnea, Headache Stress ECG Conclusion 1. This was a pharmacological stress test. 2. Patient became quite tachycardic with regadenoson injection. 3. There were no EKG changes suggestive of ischemia. 4. EKG portion of this test was nondiagnostic. Critical Notification Physician Notified Physician Name: Dr Rodriges Stress Test Summary STAGE HR BP Symptoms NOTES Supine 81 130/64 3 min post Lexiscan injection 128 140/72 6 min post Lexiscan injection 121 138/70 No change in symptoms 9 min post Lexiscan injection Aminophylline 50mg IVP given 12 min post Lexiscan injection 117 136/70 symptoms subsiding 15 min post Lexiscan injection 98 symptoms subsided MPI Conclusion Fraction was 65% with stress. There were no wall motion abnormalities. There was no evidence of inducible ischemia with stress. This represents a normal SPECT stress test.
--- NOTE | 2019-06-02 15:44 | DSE_ITS ---
Date of service: 06/02/19 Time of Service: 15:44 DS: Diagnosis Discharge Diagnosis (1) Chest pain: Status: Acute Asessment and Plan: Chest pain by history that did not occur during this hospitalization. Troponins remained all below level of detection. No dysrhythmias on telemetry. She did develop rapid onset chest pain at the time of her MPI stress test with a presentation that was felt more to be related to panic and anxiety than angina. No ischemic ECG changes and negative nuclear medicine imaging for ischemia. It was felt that her chest pain is not due to coronary artery disease, possibly musculoskeletal with an overlay of anxiety? Atherosclerotic risk calculated using standard risk calculator and based on recent cholesterol levels and using the highest blood pressure remeasured here is still low at 1.6%. No new medications initiated at discharge. (2) Migraine: Status: Chronic Asessment and Plan: Headache that she attributes to stress and caffeine withdrawal, perhaps migraine? Responded to ibuprofen. She questioned whether or not propranolol should be restarted (taking this in the past for migraine prophylaxis plus help with social anxiety). I defer this question to her primary care provider. Discharge Plan Disposition Patient Disposition: HOME Condition: Good Discharge Details Chief Complaint: Chest Pain Reason For Visit: CP Admit Date/Time: 06/01/19 20:16 Admit Provider: Mahesh Nation Attending Provider: Mahesh Nation Primary Care Provider: Savana Mercado ED Provider: Valerie Royal Hospital Course Hospital Course: 53-year-old woman admitted with exercise-induced left pectoral to left axillary chest pain, without associated diaphoresis nausea vomiting or respiratory changes and transient lateral ST sagging on EKG. Asymptomatic after ER presentation and thereafter. No dysrhythmias on telemetry. No problems with elevated or low blood pressures. No recurrence of chest discomfort. Empirically placed on heparin pending MPI stress test. Test was performed with verbal report that there is no indication of ischemia. She did have prompt development of chest pain and accelerated heart rate thought to be likely due to panic attack. Lexiscan was reversed with Aminophyllin and reassurance was provided and her symptoms abated. On the morning of discharge she complained of bitemporal headache that she attributes to caffeine withdrawal and possible migraine. This improved with ibuprofen. Out of hospital policy?abundance of caution, she had coronavirus testing performed. She had no symptoms or exposure history. Test results pending at the time of discharge. Home Meds and New Rx's Prescriptions: Continued valacyclovir 500 mg tablet 1,000 mg PO DAILY RF: 0 lysine 1,000 mg tablet 1,000 mg PO DAILY RF: 0 ibuprofen 800 mg tablet 800 mg PO Q8H RF: 0 Discharge Instructions Additional Instructions: You may resume all usual activities. Using the standard atherosclerotic risk factor calculator results in a 1.6% 10-year risk for you using your most recent cholesterol levels and the highest blood pressure we recorded while you were in the hospital. This is considered low risk. Call the hospital and ask for the hospitalist if you do not hear of the test results of the coronavirus by June 04. Continue to practice good hand hygiene, social distancing and wearing a facial covering when you are out of the house. Referrals: Savana Mercado [Primary Care Provider] - (Please call to schedule an appointment in about 1 month.) Activity:: Activity as Tolerated Equipment/Supplies:: No Equipment Needed Diet:: As Tolerated Discharge Orders Discharge Orders: Discharge Order (Routine); Ordered 06/02/19 Ordered By: Msiael Copeland DS: Summary Status at Discharge Functional status at discharge: independent ambulation Overall status at discharge: patient is back to baseline Mental Status: mental status grossly normal Speech and Movement: speech and movement normal Mood: congruent mood Affect: normal affect Exam Narrative Exam Narrative: Mildly anxious but in no acute emotional or physical distress. Sinus rhythm on monitor. Blood pressure high of 143/88, most readings were 110- 120 systolic range. No JVD. Clear lungs. No heart murmur S3 or S4 heard. Normal distal pulses. No pain in the chest with movement of her arms or with taking a deep breath. Independent with transfers and ambulation. Psych Mental Status: mental status grossly normal Speech and Movement: speech and movement normal Mood: congruent mood Affect: normal affect DS: Data Vitals/I&O Vitals and I&O: Vital Signs Temperature 36.1 C L 06/02/19 12:05 Temperature Source Temporal Artery Scan 06/02/19 12:05 Pulse 71 06/02/19 11:52 Pulse 79 06/02/19 13:00 Respiratory Rate 22 06/02/19 13:00 Respiratory Effort Non-Labored 06/02/19 12:05 Respiratory Depth Normal 06/02/19 12:05 Respiratory Pattern Normal 06/02/19 12:05 Blood Pressure 127/78 06/02/19 11:52 Blood Pressure Mean 90 06/02/19 11:52 Blood Pressure Position Supine 06/02/19 03:52 Pulse Oximetry 97 06/02/19 11:52 Oxygen Delivery Method Room Air 06/02/19 03:52 Oxygen Flow Rate 0 06/02/19 03:52 Pain Level 6 06/02/19 12:05 Comment 06/01/19 11:19 Intake & Output 06/01/19 06/02/19 06/02/19 23:59 11:59 23:59 Intake Total 336 / 436 100 / 436 Output Total 1385 / 1560 175 / 1560 Balance -1049 / -1124 -75 / -1124 Weight 76.204 kg 80.8 kg Intake: IV 96 / 96 Oral 240 / 340 100 / 340 Output: Urine 1385 / 1560 175 / 1560 Other: Urine Color Straw Yellow Urine Appearance Clear Clear Urine Odor Normal Normal Comment voiding qs, urine clear light nato Stool Occult Blood Negative Stool Size Large Stool Characteristics Soft Formed Brown Voiding Methods Bedside Commode Bedside Commode Data Completed and Pending Labs on day of discharge: Labs from last 24 hours 06/02/19 06/02/19 06/01/19 14:50 06:20 23:25 APTT Pending 95.7 H* D Troponin I < 0.05 Coronavirus (PCR) 06/01/19 06/01/19 06/01/19 22:16 21:28 21:28 APTT 27.7 Troponin I < 0.05 Coronavirus (PCR) Pending Verbal report from cardiology MPI stress test negative for ischemia [facility] Medical History Depression (Chronic) Herpes labialis (Acute) Hypertension (Chronic) Migraine (Chronic) Shingles (Acute) Trigeminal neuralgia (Acute) Family History Father Hepatitis Mother Depression Heart disease Social History Smoking/Tobacco Use Status: Never Alcohol Intake: never Drug use: Never Substance use type: does not use Details: 1-2 drinks five days a week Do you feel safe at home: Yes Do you feel safe in your relationship?: Yes Additional Social history: pt is here with family; interacts appropriately Female Reproductive History Menstrual control method: none History History 3 Para 3 Hx # Term Pregnancies Multiple births Hx # Pregnancies Ectopic pregnancies AB induced Hx Number of Living Children AB spontaneous
[2019-06-02 15:47] LABS: PTT Activated 30.1 sec (21.0-31.4)
[2019-06-03 10:30] LABS: COVID-19 RT-PCR Result Negative (Negative)
== END 2019-06-02 16:28 | disposition home or self-care (01) ==
LOC: ER 20:53 → ICU 21:47
PROVIDERS: Internal Medicine; Admitting Provider General Practice; Emergency Provider Student in an Organized Health Care Education/Training Program; PCP Registered Nurse; Visit Provider General Practice
DX: R07.9 Chest pain, unspecified (principal); F41.0 Panic disorder [episodic paroxysmal anxiety]; F41.9 Anxiety disorder, unspecified; R51 Headache; Z11.59 Encounter for screening for other viral diseases; I10 Essential (primary) hypertension
CPT/HCPCS: 36415; 78452; 80053; 93005; 99217; 99222; 99285; U0003; 71045; 83735; 84484; 85025; 85379; 85730; 93010; 93017; 99219; G0378; J0280; J2785

== ENCOUNTER 2020-07-14 03:19 | Outpatient (CLI) | payer OTHER, SELFPAY ==
[2020-07-14 14:13] LABS: Abs Immature Grans 0.02 10^3/uL (0.0-0.06); Absolute Basophil Count 0.06 10^3/uL (0.0-0.2); Absolute Eosinophil Count 0.26 10^3/uL (0.0-0.7); Absolute Lymphocyte Count 2.29 10^3/uL (1.2-3.4); Absolute Neutrophil Count 4.38 10^3/uL (1.2-6.7); Basophils % 0.8; Eosinophils % 3.5; HCT 40.2 % (36.0-46.0); HGB 13.4 g/dL (11.2-15.7); Immature Grans % 0.3; Lymphocytes % 30.5; MCH 31.8 pg (27.0-33.0); MCHC 33.3 % (32.0-36.0); MCV 95.5 fL (80-95); MPV 9.7 fL (8.0-11.0); Monocytes % 6.7; Neutrophils % 58.2; Nucleated RBC 0 %; Platelet Count 297 10^3/uL (130-400); RBC 4.21 10^6/uL (3.93-5.22); RDW 11.5 % (11.7-14.6); RDW-SD 40.2 fL; WBC 7.51 10^3/uL (4.4-10.8)
[2020-07-14 15:01] LABS: ALT 24 U/L (14-59); AST 16 U/L (15-37); Albumin 3.9 g/dL (3.4-5.0); Alkaline Phosphatase 83 U/L (46-116); Anion Gap 7.4 mmol/L (3-11); BUN 10 mg/dL (7-18); Bilirubin, Total 0.5 mg/dL (0.2-1.0); CO2 28.6 mmol/L (21.0-32.0); CREATININE 0.8 mg/dL (0.55-1.02); Calcium 9.1 mg/dL (8.5-10.1); Calculated LDL 163 mg/dL (<100); Chloride 106 mmol/L (98-107); Cholesterol 272 mg/dL (<200); Glucose 76 mg/dL (74-106); HDL Cholesterol 93 mg/dL (40-60); Potassium 4.5 mmol/L (3.5-5.1); Sodium 142 mmol/L (136-145); Total Protein 6.9 g/dL (6.4-8.2); Triglyceride 81 mg/dL (<150)
== END 2020-07-14 03:20 | disposition home or self-care (01) ==
LOC: LBO 03:19
PROVIDERS: PCP Family Medicine; Visit Provider Family Medicine
DX: I10 Essential (primary) hypertension (principal); E78.5 Hyperlipidemia, unspecified
CPT/HCPCS: 36415; 80053; 80061; 85025

== ENCOUNTER 2021-09-04 11:47 | Outpatient (CLI) | payer OTHER, SELFPAY ==
[2021-09-04 11:35] LABS: Abs Immature Grans 0.01 10^3/uL (0.0-0.06); Absolute Basophil Count 0.04 10^3/uL (0.0-0.2); Absolute Eosinophil Count 0.19 10^3/uL (0.0-0.7); Absolute Lymphocyte Count 2.11 10^3/uL (1.2-3.4); Absolute Monocyte Count 0.42 10^3/uL (0.1-0.8); Basophils % 0.8; Eosinophils % 3.6; HCT 41.5 % (36.0-46.0); HGB 13.8 g/dL (11.2-15.7); Immature Grans % 0.2; MCH 31.2 pg (27.0-33.0); MCHC 33.3 % (32.0-36.0); MCV 94 fL (80-95); MPV 9.7 fL (8.0-11.0); Neutrophils % 47.4; Platelet Count 375 10^3/uL (130-400); RBC 4.43 10^6/uL (3.93-5.22); RDW 11.9 % (11.7-14.6); RDW-SD 41.7 fL; WBC 5.27 10^3/uL (4.4-10.8)
[2021-09-04 12:25] LABS: Anion Gap 7.7 mmol/L (3-11); BUN 11 mg/dL (7-18); CO2 28.3 mmol/L (21.0-32.0); CREATININE 0.9 mg/dL (0.55-1.02); Calculated LDL 170 mg/dL (<100); Chloride 103 mmol/L (98-107); Cholesterol 286 mg/dL (<200); Glucose 86 mg/dL (74-106); HDL Cholesterol 93 mg/dL (40-60); Magnesium 2.1 mg/dL (1.8-2.4); Potassium 4.7 mmol/L (3.5-5.1); Sodium 139 mmol/L (136-145); Triglyceride 115 mg/dL (<150)
== END 2021-09-04 11:48 | disposition home or self-care (01) ==
LOC: LBO 11:49
PROVIDERS: PCP Family Medicine; Visit Provider Family Medicine
DX: R00.2 Palpitations (principal); Z00.00 Encounter for general adult medical examination without abnormal findings
CPT/HCPCS: 36415; 80048; 80061; 83735; 85025

== ENCOUNTER 2022-05-28 01:03 | Outpatient (CLI) | payer OTHER, SELFPAY ==
--- NOTE | 2022-05-28 | DI.MAMMO_ITS ---
Exam(s) MAMMO SCREENING EXAM: MAMMO SCREENING CLINICAL HISTORY: SCREENING FOR BREAST CANCER Z12.31. TECHNIQUE: Bilateral full field digital CC and MLO mammographic images were obtained with 3D tomosyn thesis and utilizing computer aided detection (CAD). COMPARISON: Prior mammograms were reviewed. FINDINGS: There has been no significant change in the appearance and distribution of the fibroglandular tissue. Small nodular density in the left breast is unchanged from prior study 3 years ago. No new spiculated masses. Benign-appearing microcalcifications again noted in both breast. There is a microcalcification group in the lateral aspect of the right breast which is unchanged from February 2019 and is not associated with no obvious mass. Another microcalcification group located more ante riorly in the right breast is also unchanged. There is no significant architectural distortion nor skin thickening-retraction. IMPRESSION: Stable benign findings. No radiographic evidence of malignancy BI-RADS Category 2 - Benign Findings Breast Density - Category B - Scattered areas of fibroglandular density Breast density Category C or D implies that the patient has dense breast tissue. Dense breast tissue can make it harder to find cancer on a mammogram. Dense breast tissue is also associated with an incr eased risk of breast cancer. This information about the result of the mammogram report was provided to the patient to raise their awareness. Use this report when you speak with the patient about their risks for breast cancer, which includes their family history. At that time, you may recommend additional screening tests (Ultrasoun d or MRI) as these tests may add significant information. A negative radiographic report should not delay biopsy if a dominant or clinically suspicious mass is present. Up to ten percent of cancers are not identified on mammography. A negative report may reinforce clinical impression. Adenosis and dense breasts may obscure an underlying neoplasm. False positive reports average 6 to 10%. Patient will receive a letter notifying them of these results.
== END 2022-05-28 01:23 ==
PROVIDERS: PCP Family Medicine; Visit Provider Family Medicine
DX: Z12.31 Encounter for screening mammogram for malignant neoplasm of breast (principal)
CPT/HCPCS: 77063; 77067

== ENCOUNTER 2022-07-30 15:55 | Outpatient (REF) | payer OTHER, SELFPAY ==
--- NOTE | 2022-07-30 15:00 | PAPFT_PTH ---
PATIENT: Lorena Gonzalez LOC: [facility] U#:[id number] AGE/SX: 57/F ROOM: RE07/30/[address]: Matilde Vela NP : 1965 BED: DIS: 07/30/2022 SPEC #: [id number] RECD: 07/30/22 17:55 STATUS: SRAVANTHI REAnibal #: [id number] BRADEN: 07/30/22 15:[address]: Matilde Vela NP DEPT: [facility] Cytology RECD BY: Cinthia Miranda ENTERED: 07/30/22 17:55 SP TYPE: PAPFT OTHR DR: Sydni Honeycutt Tissues: 1 - CX/ENDOCX FOR PAP SMEARS Procedures: PAP THIN PREP/UVM Screening HPV DNA PROBE Comments: [id number]
== END 2022-07-30 15:56 | disposition home or self-care (01) ==
LOC: LBN 15:55
PROVIDERS: PCP Family Medicine; Visit Provider Nurse Practitioner Women's Health
DX: Z12.4 Encounter for screening for malignant neoplasm of cervix (principal); Z11.51 Encounter for screening for human papillomavirus (HPV)
CPT/HCPCS: 88142; 87624

== ENCOUNTER 2023-11-06 01:56 | Outpatient (CLI) | payer OTHER, SELFPAY ==
--- NOTE | 2023-11-06 14:00 | DI.MAMMO_ITS ---
Exam(s) MAMMO SCREENING EXAM: MAMMO SCREENING CLINICAL HISTORY: screening TECHNIQUE: Bilateral full field digital CC and MLO mammographic images were obtained with 3D tomosyn thesis and utilizing computer aided detection (CAD). COMPARISON: Available for comparison. FINDINGS: Masses/Architectural Distortion: None seen. Microcalcifications: No suspicious pleomorphic-type are seen. The collection of microcalcifications i n the outer right breast are stable. Skin Thickening/Nipple Retraction: None. IMPRESSION: 1. No significant interval change with no specific features of malignancy noted. 2. Unless there is more urgent need, screening mammography is recommended, as per [employer] guidelines. BI-RADS Category 2 - Benign Findings Breast Density - Category B - Scattered areas of fibroglandular density Breast density category C or D implies that the patient has dense breast tissue. Dense breast tissue is very common and is not abnormal but dense breast tissue can make it harder to find cancer on a ma mmogram. Also, dense breast tissue may increase their breast cancer risk. This information about the result of the mammogram report was provided to the patient to raise their awareness. Use this report when you speak with the patient about their risks for breast cancer, which includes their family hist ory. At that time, you may recommend for more screening tests (Ultrasound or MRI) as they might be us eful based on their risk. A negative radiographic report should not delay biopsy if a dominant or clinically suspicious mass is present. Up to ten percent of cancers are not identified on mammography. A negative report may reinforce clinical impression. Adenosis and dense breasts may obscure an underlying neoplasm. False positive reports average 6 to 10%. Patient will receive a letter notifying them of these results.
== END 2023-11-06 02:16 ==
LOC: DI 01:56
PROVIDERS: PCP Family Medicine; Visit Provider Nurse Practitioner Women's Health
DX: Z12.31 Encounter for screening mammogram for malignant neoplasm of breast (principal)
CPT/HCPCS: 77063; 77067

== ENCOUNTER 2024-11-27 04:19 | Outpatient (CLI) | payer OTHER, SELFPAY ==
--- NOTE | 2024-11-27 11:57 | DI.MAMMO_ITS ---
Exam(s) MAMMO SCREENING EXAM: MAMMO SCREENING CLINICAL HISTORY: screening TECHNIQUE: Mammograms were interpreted according to the usual protocol including computer analysis with CAD system, tomosynthesis and C-view imaging. COMPARISON: 2019 through 2023 FINDINGS: The breasts are composed of scattered fibroglandular densities, Breast Density category B. No suspicious masses or suspicious microcalcifications are seen. No skin thickening or abnormal axillary lymph nodes are seen. There has been no significant change from prior exams. IMPRESSION: BI-RADS Category 1, Negative mammogram Yearly screening mammography is recommended. Breast Density - Category B - There are scattered areas of fibroglandular density. Breast density Category C or D implies that the patient has dense breast tissue. Dense breast tissue can make it harder to find cancer on a mammogram. Dense breast tissue is also associated with an increased risk of breast cancer. This information about the result of the mammogram report was provided to the patient to raise their awareness. Use this report when you speak with the patient about their risks for breast cancer, which includes their family history. At that time, you may recommend additional screening tests (Ultrasound or MRI) as these tests may add significant information. A negative radiographic report should not delay biopsy if a dominant or clinically suspicious mass is present. Up to ten percent of cancers are not identified on mammography. A negative report may reinforce clinical impression. Adenosis and dense breasts may obscure an underlying neoplasm. False positive reports average 6 to 10%. Patient will receive a letter notifying them of these results.
== END 2024-11-27 04:39 ==
LOC: DI 04:19
PROVIDERS: PCP Family Medicine; Visit Provider Nurse Practitioner Women's Health
DX: Z12.31 Encounter for screening mammogram for malignant neoplasm of breast (principal); R92.323 Mammographic fibroglandular density, bilateral breasts
CPT/HCPCS: 77063; 77067